=== PATIENT | male | born 1970 | race Caucasian/White ===

== ENCOUNTER 2020-08-24 09:43 | Inpatient (IN) | payer OTHER ==
[~2020-08-24] VITALS: Ht 177.8 cm; Wt 162.0 kg
[2020-08-24 11:18] LABS: Hematocrit 54.9 % (41.0-53.0); Hemoglobin 18.2 g/dL (13.5-17.5); Mean Corpuscular Hemoglobin 30.6 pg (28.0-32.0); Mean Corpuscular Hgb Conc. 33.1 g/dL (32.0-36.0); Mean Corpuscular Volume 92.6 fL (80.0-100.0); Platelet Count (auto) 110 10^3/uL (140-450); Red Blood Cells 5.94 10^6/uL (4.5-5.90); Red Cell Distribution Width 19.3 % (11.8-14.3); White Blood Cell 9.6 10^3/uL (4.4-10.8)
[2020-08-24 11:19] LABS: Band Neutrophils % (manual) 0; Basophils % (manual) 0 (0.0-2.0); Blast Cells 0; Eosinophils % (manual) 0 (0-7); Metamyelocytes % 0; Myelocytes % 0; Promyelocytes % 0; Reactive Lymphocytes 0
[2020-08-24 11:32] LABS: Albumin 4.3 g/dL (3.4-5.0); Calcium 9.4 mg/dL (8.5-10.1); Magnesium 2.4 mg/dL (1.6-2.6); Potassium 4.4 mmol/L (3.5-5.1)
[2020-08-24 11:38] LABS: BUN/Creatinine Ratio 12.2; Bilirubin, Total 4.8 mg/dL (0.2-1.0); Total Protein 7.2 g/dL (6.4-8.2)
[2020-08-24 11:45] LABS: Lymphocytes % (manual) 14 (10.0-50.0); Monocytes % (manual) 7 (0-12)
[2020-08-24] MEDS ORDERED: dilTIAZem 25 MG/5 ML VIAL IV ONE (12:15)
[2020-08-24] MEDS ORDERED: SPIRONOLACTONE 25 MG TAB PO ONE (12:15)
[2020-08-24] MEDS ORDERED: FUROSEMIDE 40 MG/4 ML VIAL IV ONE (12:15)
[2020-08-24 13:52] LABS: Urine Amorphous Crystal FEW /hpf (None Seen); Urine Bacteria NONE SEEN /hpf (None Seen); Urine Blood Negative /uL (Negative); Urine Hyaline Cast MOD /lpf (0 - 2); Urine Mucus FEW (None Seen); Urine Specific Gravity 1.006 (1.001-1.035); Urine WBC <1 /hpf (0 - 3)
[2020-08-24 13:52] LABS: INR 1.29 (0.9-1.15); Partial Thromboplastin Time 29.7 sec (23.0-31.2)
[2020-08-24] MEDS ORDERED: AMIODARONE HCL 150 MG in D5W 5% 100 ML IV ONE (14:45)
[2020-08-24] MEDS ORDERED: AMIODARONE 450mg/250ml AE 250 ML IV SCH (15:00)
[2020-08-24] MEDS ORDERED: MORPHINE SULF INJ 2 MG/ML SYRINGE 1ML IV PRN ×2 (15:45→16:15)
[2020-08-24] MEDS ORDERED: NITROGLYCERIN 0.4 MG SL TAB SL PRN (15:45)
[2020-08-24] MEDS ORDERED: traMADol HCL 50 MG TAB PO PRN (16:15)
[2020-08-24] MEDS ORDERED: LACTULOSE 20Gm/30ML SOLN PO PRN (16:15)
[2020-08-24] MEDS ORDERED: PROMETHAZINE HCL 25 MG/ML 1ML IV PRN (16:15)
[2020-08-24 16:49] LABS: Alcohol, Urine < 3.0 mg/dL (0-10); Amphetamine Screen, Urine NEGATIVE (NEGATIVE); Barbiturate Scree,Urine NEGATIVE (NEGATIVE); Benzodiazephine Screen, Urine NEGATIVE (NEGATIVE); Cannabinoid Screen, Urine NEGATIVE (NEGATIVE); Cocaine Screen, Urine NEGATIVE (NEGATIVE); Opiate Scree,Urine NEGATIVE (NEGATIVE); Phencyclidine Screen, Urine NEGATIVE (NEGATIVE)
[2020-08-24] MEDS: ENOXAPARIN SOD 120 MG/0.8 ML SYRINGE SC SCH (17:25)
[2020-08-24] MEDS: AMIODARONE 450mg/250ml AE 250 ML IV SCH (21:50)
[2020-08-24] MEDS: SODIUM CHLOR 0.9% PF (SALINE LOCK) 10ML VIAL/SYR IV SCH (21:50)
[2020-08-24] MEDS: CARVEDILOL 3.125 MG TAB PO SCH (21:51)
[2020-08-24] MEDS: FAMOTIDINE 20 MG TAB PO SCH (21:52)
[2020-08-24] MEDS ORDERED: TEMAZEPAM 15 MG CAP PO PRN (22:00)
[2020-08-25] MEDS: AMIODARONE 450mg/250ml AE 250 ML IV SCH (01:15)
[2020-08-25] MEDS: ENOXAPARIN SOD 120 MG/0.8 ML SYRINGE SC SCH ×2 (04:44→16:54)
[2020-08-25] MEDS ORDERED: IOHEXOL 350 MG/ML 100ML IJ ONE (04:46)
[2020-08-25 04:53] LABS: Basophils # (auto) 0.1 10 ^3/uL (0-0.2); Basophils % (auto) 0.8 % (0.0-2.0); Eosinophils # (auto) 0.1 10 ^3/uL (0-0.8); Eosinophils % (auto) 0.8 % (0.0-7.0); Hemoglobin 17.6 g/dL (13.5-17.5); Lymphocytes % (auto) 12.4 % (10.0-50.0); Mean Corpuscular Hemoglobin 30.4 pg (28.0-32.0); Mean Corpuscular Hgb Conc. 33.1 g/dL (32.0-36.0); Mean Corpuscular Volume 91.7 fL (80.0-100.0); Monocytes # (auto) 0.7 10 ^3/uL (0-1.3); Monocytes % (auto) 8.9 % (0.0-12.0); Neutrophils # (auto) 6.3 10 ^3/uL (1.6-8.6); Neutrophils % (auto) 77.1 % (37.0-80.0); Nucleated Red Blood Cells % 0.2 %; Red Blood Cells 5.78 10^6/uL (4.5-5.90); Red Cell Distribution Width 18.9 % (11.8-14.3); White Blood Cell 8.1 10^3/uL (4.4-10.8)
[2020-08-25 04:57] LABS: Albumin 3.8 g/dL (3.4-5.0); Calcium 9.3 mg/dL (8.5-10.1); Potassium 4.3 mmol/L (3.5-5.1)
[2020-08-25 05:00] LABS: INR 1.5 (0.9-1.15); Partial Thromboplastin Time 36.2 sec (23.0-31.2)
[2020-08-25 05:03] LABS: BUN/Creatinine Ratio 13.8; Bilirubin, Total 4.3 mg/dL (0.2-1.0); Total Protein 6.5 g/dL (6.4-8.2)
[2020-08-25] MEDS: SODIUM CHLOR 0.9% PF (SALINE LOCK) 10ML VIAL/SYR IV SCH ×3 (05:06→22:47)
[2020-08-25 06:12] LABS: Platelet Count (auto) 155 10^3/uL (140-450)
[2020-08-25] MEDS: FUROSEMIDE 40 MG/4 ML VIAL IV SCH (10:44)
[2020-08-25] MEDS: CARVEDILOL 3.125 MG TAB PO SCH ×4 (10:45→23:51)
[2020-08-25] MEDS: POTASSIUM CHL 20 Meq TABLET PO SCH (10:45)
[2020-08-25] MEDS: FAMOTIDINE 20 MG TAB PO SCH ×2 (10:46→22:48)
[2020-08-25] MEDS: ENALAPRIL MALEATE 2.5 MG TAB PO SCH (10:46)
[2020-08-25] MEDS: HYDROCORTONE 1% TOPICAL CREAM 30 GM TUBE TOP SCH ×2 (11:18→22:51)
[2020-08-26] MEDS: AMIODARONE 450mg/250ml AE 250 ML IV SCH ×2 (03:46→18:18)
[2020-08-26] MEDS: ENOXAPARIN SOD 120 MG/0.8 ML SYRINGE SC SCH ×2 (04:34→16:43)
[2020-08-26] MEDS: SODIUM CHLOR 0.9% PF (SALINE LOCK) 10ML VIAL/SYR IV SCH ×3 (06:04→21:48)
[2020-08-26] MEDS: HYDROCORTONE 1% TOPICAL CREAM 30 GM TUBE TOP SCH ×2 (10:00→22:00)
[2020-08-26] MEDS: FUROSEMIDE 40 MG/4 ML VIAL IV SCH (11:17)
[2020-08-26] MEDS: FAMOTIDINE 20 MG TAB PO SCH ×2 (11:18→21:50)
[2020-08-26] MEDS: ENALAPRIL MALEATE 2.5 MG TAB PO SCH (11:18)
[2020-08-26] MEDS: POTASSIUM CHL 20 Meq TABLET PO SCH (11:18)
[2020-08-26] MEDS: NITROGLYCERIN 2% OINT 1GM PKG TD SCH ×2 (23:00→23:57)
[2020-08-27] VITALS (7 sets, daily range): BP systolic 114–139; BP diastolic 69–92
--- NOTE | 2020-08-27 00:22 | NUR ---
Telemetry admit from [facility] admitted to Telemetry unit after SBAR received. Patient oriented to PANDA LARA, RN primary RN, unit, room, bed, and unit policies regarding patient care and visiting hours. Patient now on continuous telemetry monitoring tele box # 39 and telemetry reading on arrival to unit is AFIB 84. Patient placed on bedside oxygen, weighed by bedscale and encouraged to call if they need something. Safety precautions in place bed in lowest position, side rails up x2 and call light with in reach. All questions and concerns addressed, patient verbalized understanding.
[2020-08-27] MEDS: NITROGLYCERIN 2% OINT 1GM PKG TD SCH ×2 (01:09→02:01)
[2020-08-27] MEDS: ENOXAPARIN SOD 120 MG/0.8 ML SYRINGE SC SCH ×2 (04:03→19:27)
[2020-08-27] MEDS: SODIUM CHLOR 0.9% PF (SALINE LOCK) 10ML VIAL/SYR IV SCH ×3 (05:14→22:06)
[2020-08-27] MEDS: FAMOTIDINE 20 MG TAB PO SCH ×2 (09:15→22:00)
[2020-08-27] MEDS: POTASSIUM CHL 20 Meq TABLET PO SCH (09:16)
[2020-08-27] MEDS: CARVEDILOL 3.125 MG TAB PO SCH ×2 (09:17→22:07)
[2020-08-27] MEDS: AMIODARONE HCL 200 MG TAB PO SCH (09:18)
[2020-08-27] MEDS: ENALAPRIL MALEATE 2.5 MG TAB PO SCH (09:19)
[2020-08-27] MEDS: FUROSEMIDE 40 MG/4 ML VIAL IV SCH (09:19)
[2020-08-27] MEDS: HYDROCORTONE 1% TOPICAL CREAM 30 GM TUBE TOP SCH ×2 (10:00→22:00)
--- NOTE | 2020-08-27 12:25 | NUR ---
Nutrition Assessment Est energy needs 7670-5821 kcal (11-14kcal/kg BW 164.7kg) Est protein needs 75-98g (1-1.3g/kg IBW 75kg) Will monitor and reassess prn. Addendum: 08/27/20 at [address] Amended: Links added.
--- NOTE | 2020-08-27 13:38 | NUR ---
assessment Patient is a 49 year old male who is alert and oriented. Patients cognitive abilities are intact. Prior to admission patient lived home with family and functioned independently. Patient informed me he is able to care for his own ADLs. Per patient he will return home to his prior living arrangements post discharge and family will transport him home. Patient informed me he came to ER for edema and was admitted and found some heart issues. Patient informed me he has a cane, fww, and wheelchair for use if ever needed. Patients PCP is Dr Kenny. I informed patient I will continue to monitor and follow up as appropriate for any post discharge needs. At this time no discharge needs identified. I informed patient he has a right to speak to a social worker aide regarding all care. I informed patient he has a right to participate in any and all discharge planning. Patient does not have a POA and advanced directive. I have offered patient information on POA and advanced directives. I informed the patient the advantages and benefits of having an Advanced Directive. Patient verbalized understanding and agreed to discharge plan. Addendum: 08/27/20 at 1340 by Marlene RIDER Amended: Links added.
--- NOTE | 2020-08-27 18:44 | NUR ---
eating et drinking well. states right before he has a bm he become he feels clammy, vs wnl, no change with tele, no distress noted, no cp or sob. resting at this time. offers no other needs.
--- NOTE | 2020-08-27 19:50 | NUR ---
Opening Shift Note Assumed care of patient, awake and alert. No S/S of distress/SOB or pain. Instructed on POC and to call for assist PRN, will continue to monitor for changes Q1hr and PRN. bed in low position and call light within reach
[2020-08-28] MEDS: ENOXAPARIN SOD 120 MG/0.8 ML SYRINGE SC SCH ×2 (04:09→17:12)
[2020-08-28 04:50] VITALS: BP 120/86
[2020-08-28] MEDS: SODIUM CHLOR 0.9% PF (SALINE LOCK) 10ML VIAL/SYR IV SCH ×3 (05:23→21:57)
[2020-08-28 06:57] LABS: Albumin 3.5 g/dL (3.4-5.0); Calcium 8.8 mg/dL (8.5-10.1); Potassium 4.1 mmol/L (3.5-5.1)
[2020-08-28 07:03] LABS: BUN/Creatinine Ratio 18.4; Bilirubin, Total 3.7 mg/dL (0.2-1.0); Total Protein 6.1 g/dL (6.4-8.2)
--- NOTE | 2020-08-28 07:29 | NUR ---
Report given to dayshift rn patient denies sob distress or pain
--- NOTE | 2020-08-28 08:00 | NUR ---
RECEIVED PATIENT ALERT AND ORIENTED X4, NOT IN DISTRESS, CLEAR LS IN BILATERAL UPPER AND CLEAR IN LOWER LUNG LOBES, RR=18 SAT=95%, DEEP BREATHING AND COUGHING WAS ENCOURAGED, VERBALIZED UNDERSTANDING, SR R=92 ON TELE MONITOR, DENIED SOB AND CHEST PAIN, ABDOMEN SOFT WITH ACTIVE BS, LAST BM=08/27/20 REPORTED, SKIN INTACT WARM TO TOUCH, BILATERAL LOWER EXTREMITY EDEMA +2 NOTED, RADIAL AND PEDAL PULSES PALPABLE, CAP REFILL <3 SECONDS, DENIED PAIN, RESTING ON BED, HEAD OF BED ELEVATED, BED ON LOW POSITION, RAILS UP X2, CALL LIGHT ON REACH, WILL CONTINUE MONITORING.
[2020-08-28 09:00] VITALS: BP 115/61
[2020-08-28] MEDS: FAMOTIDINE 20 MG TAB PO SCH ×2 (10:00→21:58)
[2020-08-28] MEDS: AMIODARONE HCL 200 MG TAB PO SCH (10:48)
[2020-08-28] MEDS: FUROSEMIDE 40 MG/4 ML VIAL IV SCH (10:48)
[2020-08-28] MEDS: POTASSIUM CHL 20 Meq TABLET PO SCH (10:49)
[2020-08-28] MEDS: CARVEDILOL 3.125 MG TAB PO SCH ×2 (10:49→21:57)
[2020-08-28] MEDS: HYDROCORTONE 1% TOPICAL CREAM 30 GM TUBE TOP SCH ×2 (10:50→21:58)
[2020-08-28] MEDS: ENALAPRIL MALEATE 2.5 MG TAB PO SCH (10:50)
[2020-08-28 12:11] VITALS: BP 120/90
--- NOTE | 2020-08-28 13:00 | NUR ---
OUT OF BED TO BR, TOLERATED BODY CLEAN, BACK TO THE BED AND RESTING, PENDING CARDIAC CONSULT, WILL CONTINUE MONITORING.
[2020-08-28 16:47] VITALS: BP 152/78
--- NOTE | 2020-08-28 19:18 | NUR ---
PENDING CAROTID CATH IN AM ORDERED, BODY DESIGNER FORM ON CHART, NOT IN DISTRESS, DENIED PAIN, RESTING ON BED, HEAD OF BED ELEVATED, BED ON LOW POSITION, RAILS UP X2, CALL LIGHT ON REACH, REPORT WAS GIVEN TO THE NANOSYSTEMS ENGINEER RN.
--- NOTE | 2020-08-28 19:27 | NUR ---
Opening Shift Note Assumed care of patient, awake and alert. No S/S of distress/SOB or pain. Patient verbalized understanding of procedure scheduled and verbalized understanding to remain npo after midnight. Instructed on POC and to call for assist PRN, will continue to monitor for changes Q1hr and PRN. Bed in low position and call light within reach
[2020-08-28 20:00] VITALS: BP 124/75
[2020-08-28 20:40] LABS: Basophils # (auto) 0 10 ^3/uL (0-0.2); Basophils % (auto) 0.5 % (0.0-2.0); Eosinophils # (auto) 0.1 10 ^3/uL (0-0.8); Eosinophils % (auto) 1.5 % (0.0-7.0); Hematocrit 52.5 % (41.0-53.0); Hemoglobin 17.5 g/dL (13.5-17.5); Lymphocytes # (auto) 1.1 10 ^3/uL (0.4-5.4); Lymphocytes % (auto) 14.1 % (10.0-50.0); Mean Corpuscular Hemoglobin 30.6 pg (28.0-32.0); Mean Corpuscular Hgb Conc. 33.3 g/dL (32.0-36.0); Mean Corpuscular Volume 91.9 fL (80.0-100.0); Monocytes % (auto) 12.5 % (0.0-12.0); Neutrophils # (auto) 5.6 10 ^3/uL (1.6-8.6); Neutrophils % (auto) 71.4 % (37.0-80.0); Nucleated Red Blood Cells % 0.2 %; Platelet Count (auto) 109 10^3/uL (140-450); Red Blood Cells 5.72 10^6/uL (4.5-5.90); Red Cell Distribution Width 17.9 % (11.8-14.3); White Blood Cell 7.9 10^3/uL (4.4-10.8)
[2020-08-28 20:54] LABS: INR 1.53 (0.9-1.15); Partial Thromboplastin Time 45.2 sec (23.0-31.2)
[2020-08-28 21:53] VITALS: BP 124/75
--- NOTE | 2020-08-28 22:00 | NUR ---
Consent patient signed procedure consent.patient verbalized understanding of procedure which was explained by MD. patient has no further questions.
[2020-08-29 01:35] LABS: Urine Bacteria FEW /hpf (None Seen); Urine Blood Negative /uL (Negative); Urine Hyaline Cast MOD /lpf (0 - 2); Urine Mucus FEW (None Seen); Urine Specific Gravity 1.015 (1.001-1.035); Urine WBC 1 /hpf (0 - 3)
[2020-08-29] MEDS: ENOXAPARIN SOD 120 MG/0.8 ML SYRINGE SC SCH (03:44)
[2020-08-29 05:37] VITALS: BP 137/95
[2020-08-29] MEDS: SODIUM CHLOR 0.9% PF (SALINE LOCK) 10ML VIAL/SYR IV SCH ×3 (06:06→23:05)
--- NOTE | 2020-08-29 07:19 | NUR ---
report given to dayshift rn patient denies sob distress or pain
[2020-08-29] MEDS ORDERED: LIDOCAINE 2%HCL (LOCAL ANESTH.) INJ 20ML MDV ONE (07:58)
[2020-08-29] MEDS ORDERED: IODIXANOL 320MG/ML 100ML BTL IV ONE (07:58)
[2020-08-29] MEDS ORDERED: fentaNYL CITRATE 100 MCG/2 ML VL ONE (08:10)
[2020-08-29] MEDS ORDERED: SODIUM CHL 0.9% 0 ML ONE (08:10)
[2020-08-29] MEDS ORDERED: MIDAZOLAM HCL 1MG/1ML-2 ML VIAL ONE (08:10)
[2020-08-29] MEDS ORDERED: ANGIOMAX 250 MG VIAL IV ONE (08:10)
[2020-08-29 08:49] VITALS: BP 121/102
[2020-08-29 10:27] VITALS: BP 117/70
[2020-08-29] MEDS: AMIODARONE HCL 200 MG TAB PO SCH (11:07)
[2020-08-29] MEDS: APIXABAN 5 MG TAB PO SCH ×2 (11:07→23:06)
[2020-08-29] MEDS: ENALAPRIL MALEATE 2.5 MG TAB PO SCH (11:08)
[2020-08-29] MEDS: POTASSIUM CHL 20 Meq TABLET PO SCH (11:08)
[2020-08-29] MEDS: FUROSEMIDE 40 MG/4 ML VIAL IV SCH (11:14)
[2020-08-29] MEDS: CARVEDILOL 3.125 MG TAB PO SCH ×2 (11:14→23:05)
[2020-08-29] MEDS: HYDROCORTONE 1% TOPICAL CREAM 30 GM TUBE TOP SCH ×2 (11:15→23:06)
[2020-08-29] MEDS: FAMOTIDINE 20 MG TAB PO SCH ×2 (11:15→22:00)
[2020-08-29 12:40] VITALS: BP 112/79
[2020-08-29 16:25] VITALS: BP 111/72
--- NOTE | 2020-08-29 18:28 | NUR ---
Patient had catheter builder procedure today. Vital signs stable, incision site intact no drainage or bruising . no pain patient states that he feels well. Will continue to monitor
[2020-08-29 22:00] VITALS: BP 138/95
[2020-08-30 04:56] VITALS: BP 130/72
[2020-08-30] MEDS: SODIUM CHLOR 0.9% PF (SALINE LOCK) 10ML VIAL/SYR IV SCH ×3 (06:25→22:00)
--- NOTE | 2020-08-30 07:15 | NUR ---
closing note pt resting in semi fowlers with HOB at 30 degrees. no c/o pain or discomfort. endorsed care to day shift MINOR Cruz.
[2020-08-30 09:25] VITALS: BP 121/82
[2020-08-30] MEDS: HYDROCORTONE 1% TOPICAL CREAM 30 GM TUBE TOP SCH ×2 (10:34→22:00)
[2020-08-30] MEDS: AMIODARONE HCL 200 MG TAB PO SCH (10:35)
[2020-08-30] MEDS: FUROSEMIDE 40 MG/4 ML VIAL IV SCH (10:36)
[2020-08-30] MEDS: APIXABAN 5 MG TAB PO SCH ×2 (10:36→22:35)
[2020-08-30] MEDS: POTASSIUM CHL 20 Meq TABLET PO SCH (10:36)
[2020-08-30] MEDS: CARVEDILOL 3.125 MG TAB PO SCH ×2 (10:38→22:35)
[2020-08-30] MEDS: ENALAPRIL MALEATE 2.5 MG TAB PO SCH (10:38)
[2020-08-30] MEDS: FAMOTIDINE 20 MG TAB PO SCH ×2 (10:40→22:00)
[2020-08-30 13:12] VITALS: BP 116/99
--- NOTE | 2020-08-30 14:28 | NUR ---
Spoke to to ask him for life vest for patient since the patient EF <20%. ordered the life vest for patient and explained to patient the importance of it. I also spoke to Jordan from [employer] that said that membership sales representative will come today to measure the patient. The vest will be ready tomorrow morning. Spoke to to let him know that the vest will probably be there tomorrow morning.
--- NOTE | 2020-08-30 15:36 | NUR ---
Nutrition Followup Note Wt 162kg Pt was alert and oriented at time of rounds. Pt reports appetite is getting better. Pt denies any GI issues. Pt is with a 2g Na diet with 75-100% po intake per RN note Est energy needs 1658-3632 kcal (11-14kcal/kg BW 164.7kg) Est protein needs 75-98g (1-1.3g/kg IBW 75kg) Will monitor and reassess prn. Labs: T bili 3.7H, Alb 3.5WNL, Na 133L, BUN 26H, Creat 1.41H BM: Pt with 1 BM 08/29 per Rn note Skin : BS 18 mod risk, full details in career technical counselor note PES: Obesity r/t caloric intake in excess of needs aeb pt with a BMI of 52.1kg/m2 Comments 1) Continue to monitor po intake, labs, skin 2) refer pt to [facility] on DC 3) Continue current plan of care Expected Outcomes/Goals: 1) pt po intake >75% 2) pt to no gain any further wt while in the hospital 3) f/u 3-5 days
[2020-08-30 17:00] VITALS: BP 127/74
[2020-08-30 21:15] VITALS: BP 133/73
--- NOTE | 2020-08-31 05:00 | NUR ---
Life Vest Pt received life vest, life vest is on. Box is on the side of room, and instruction manual is at bedside. Pt instructed to always wear life vest, and verbalized understanding purpose of life vest.
[2020-08-31 05:13] VITALS: BP 114/73
[2020-08-31] MEDS: SODIUM CHLOR 0.9% PF (SALINE LOCK) 10ML VIAL/SYR IV SCH ×2 (05:34→14:00)
[2020-08-31 09:05] VITALS: BP 138/90
[2020-08-31] MEDS: FUROSEMIDE 40 MG/4 ML VIAL IV SCH (09:37)
[2020-08-31] MEDS: APIXABAN 5 MG TAB PO SCH (09:38)
[2020-08-31] MEDS: FAMOTIDINE 20 MG TAB PO SCH (09:38)
[2020-08-31] MEDS: POTASSIUM CHL 20 Meq TABLET PO SCH (09:38)
[2020-08-31] MEDS: AMIODARONE HCL 200 MG TAB PO SCH (09:38)
[2020-08-31] MEDS: ENALAPRIL MALEATE 2.5 MG TAB PO SCH (09:40)
[2020-08-31] MEDS: CARVEDILOL 3.125 MG TAB PO SCH (09:40)
[2020-08-31] MEDS: HYDROCORTONE 1% TOPICAL CREAM 30 GM TUBE TOP SCH (10:00)
[2020-08-31 13:00] VITALS: BP 142/94
--- NOTE | 2020-08-31 13:30 | NUR ---
Patient prescribed Corlanor, per pharmacy medication is $508 and there is no generic form.Per patient he said hes is going to call and speak with their insurance to see if they can cover more of the cost of medication. Spoke with doctor Hinson regarding medication, per Doctor Hinson call Doctor Yepez and inform him about medication and have patient follow up with Doctor Yepez with in one week. Called and spoke with doctor Yepez regarding the braden of the medication and per Doctor Lucho if patient cant afford the medication he doesn't have to take it. Per Patient hes going to contact his insurance and follow up with Doctor Yepez.
--- NOTE | 2020-08-31 14:09 | NUR ---
Discharge instructions given as ordered. Encourage to follow up with PMD as instructed. All questions and concerns addressed. Patient verbalized understanding. Medication reconciliation form completed and copy given to patient. Patients prescribed medications fill by [facility] and given to patient. IV removed with catheter intact, pressure dressing applied. Telemetry unit returned to ICU. Patient taken to vehicle via wheelchair with all personal belongings, accompanied by staff. Family member waiting in front lobby for transportation home. No distress noted at time of departure.
== END 2020-08-31 14:09 | disposition home or self-care (01) | DRG 287 ==
LOC: ER 09:43 → OVERFLOW 09:44 → TELE-CENTR 08-26 23:48
PROVIDERS: ADMIT Internal Medicine; ATTEND Family Medicine
PROC: B2111ZZ Fluoroscopy of Multiple Coronary Arteries using Low Osmolar Contrast (ICD-10-PCS; principal; 2020-08-29)
PROC: B2151ZZ Fluoroscopy of Left Heart using Low Osmolar Contrast (ICD-10-PCS; 2020-08-29)
PROC: 4A023N7 Measurement of Cardiac Sampling and Pressure, Left Heart, Percutaneous Approach (ICD-10-PCS; 2020-08-29)
DX: I11.0 Hypertensive heart disease with heart failure (principal); I48.20 Chronic atrial fibrillation, unspecified; D68.59 Other primary thrombophilia; J98.11 Atelectasis; Z68.43 Body mass index [BMI] 50.0-59.9, adult; I50.23 Acute on chronic systolic (congestive) heart failure; I42.0 Dilated cardiomyopathy; R60.1 Generalized edema; E03.9 Hypothyroidism, unspecified; E80.6 Other disorders of bilirubin metabolism; D69.6 Thrombocytopenia, unspecified; R79.89 Other specified abnormal findings of blood chemistry; E66.01 Morbid (severe) obesity due to excess calories; D75.1 Secondary polycythemia; G47.30 Sleep apnea, unspecified; K76.0 Fatty (change of) liver, not elsewhere classified; Z20.828 Contact with and (suspected) exposure to other viral communicable diseases; Z87.891 Personal history of nicotine dependence; Z91.14 Patient's other noncompliance with medication regimen; Z91.19 Patient's noncompliance with other medical treatment and regimen; N28.9 Disorder of kidney and ureter, unspecified
CPT/HCPCS: 36415; 71046; 71275; 76705; 80053; 80061; 80307; 81001; 82550; 83735; 83880; 84443; 84484; 85007; 85025; 85027; 85379; 85610; 85652; 85730; 86141; 86850; 86900; 86901; 87426; 93005; 93306; 93458; 96374; 96375; 99152; G0378; J2250; J7060; Q9967

== ENCOUNTER → 2020-10-22 | Outpatient (CLI) | payer OTHER | END | disposition home or self-care (01) | LOC: Rad HDHVI 08:44 | PROVIDERS: ATTEND Internal Medicine Cardiovascular Disease | DX: I51.7 Cardiomegaly (principal); R07.89 Other chest pain; R06.02 Shortness of breath | CPT/HCPCS: 93306 ==

== ENCOUNTER → 2020-11-11 | Outpatient (CLI) | payer OTHER ==
[~2020-11-11] MED LIST: AMIO200T33 PO; APIX5TAB PO; CAR3125T PO; DIGO0.25 PO; ENAL5TAB85 PO; FURO1TAB31 PO; POTA10TA51 PO; SACU1TAB PO; SPIR25TA PO
[2020-11-11 10:15] VITALS: BP 106/66
[2020-11-11 10:39] VITALS: BP 123/69
[2020-11-11 11:56] LABS: INR 0.99 (0.9-1.15); Partial Thromboplastin Time 30.7 sec (23.0-31.2)
[2020-11-11 12:15] LABS: Calcium 8.8 mg/dL (8.5-10.1); Potassium 4.5 mmol/L (3.5-5.1)
[2020-11-11 12:17] LABS: BUN/Creatinine Ratio 23.6
[2020-11-11 15:46] LABS: Basophils # (auto) 0.1 10 ^3/uL (0-0.2); Basophils % (auto) 0.6 % (0.0-2.0); Eosinophils # (auto) 0.3 10 ^3/uL (0-0.8); Eosinophils % (auto) 2.7 % (0.0-7.0); Hematocrit 47.2 % (41.0-53.0); Hemoglobin 16.1 g/dL (13.5-17.5); Lymphocytes # (auto) 1.5 10 ^3/uL (0.4-5.4); Lymphocytes % (auto) 15.6 % (10.0-50.0); Mean Corpuscular Hemoglobin 30.7 pg (28.0-32.0); Mean Corpuscular Volume 90.3 fL (80.0-100.0); Monocytes # (auto) 0.7 10 ^3/uL (0-1.3); Neutrophils # (auto) 6.9 10 ^3/uL (1.6-8.6); Neutrophils % (auto) 73.1 % (37.0-80.0); Nucleated Red Blood Cells % 0.6 %; Red Blood Cells 5.23 10^6/uL (4.5-5.90); Red Cell Distribution Width 19.1 % (11.8-14.3); White Blood Cell 9.4 10^3/uL (4.4-10.8)
== END | disposition home or self-care (01) ==
LOC: Rad HDHVI 09:49
PROVIDERS: ATTEND Internal Medicine Cardiovascular Disease
DX: Z01.812 Encounter for preprocedural laboratory examination (principal); I51.7 Cardiomegaly; I50.9 Heart failure, unspecified; Z95.5 Presence of coronary angioplasty implant and graft
CPT/HCPCS: 36415; 71046; 80048; 85025; 85610; 85730; 93005; G0463

== ENCOUNTER 2020-11-28 06:41 | Day surgery (SDC) | payer OTHER ==
[~2020-11-28] VITALS: Ht 177.8 cm; Wt 124.7 kg
[2020-11-28] MEDS ORDERED: LIDOCAINE 2%HCL (LOCAL ANESTH.) INJ 20ML MDV ONE (07:51)
[2020-11-28] MEDS ORDERED: VANCOMYCIN 1GM/250ML 250 ML IV ONE ×2 (09:00→09:21)
[2020-11-28] MEDS ORDERED: VANCOMYCIN HCL 1000 MG VL ONE (09:33)
[2020-11-28] MEDS ORDERED: fentaNYL CITRATE 100 MCG/2 ML VL ONE (09:33)
[2020-11-28] MEDS ORDERED: MIDAZOLAM HCL 1MG/1ML-2 ML VIAL ONE (09:33)
[2020-11-28] MEDS ORDERED: diphenhdrAMINE HCL 50 MG/1 ML VL ONE (10:02)
[2020-11-28] MEDS ORDERED: HYDROcodone-ACET 5/325MG TAB PO PRN (10:45)
[2020-11-28] MEDS ORDERED: ACETAMINOPHEN 325 MG TAB PO PRN (10:45)
== END 2020-11-28 12:43 | disposition home or self-care (01) ==
LOC: CATH 06:41
PROVIDERS: ATTEND Internal Medicine Cardiovascular Disease
DX: Z45.02 Encounter for adjustment and management of automatic implantable cardiac defibrillator (principal); I11.0 Hypertensive heart disease with heart failure; I42.9 Cardiomyopathy, unspecified; Z20.822 Contact with and (suspected) exposure to COVID-19; Z98.890 Other specified postprocedural states; Z79.899 Other long term (current) drug therapy; Z68.39 Body mass index [BMI] 39.0-39.9, adult
CPT/HCPCS: 33249; 71045; 93005; C1769; C1882; C1892; C1895; C1898; J1200; J2250; J3010; J3370; J7030; U0003; 99152; 99153

== ENCOUNTER → 2020-11-29 | Outpatient (CLI) | payer OTHER | END | disposition home or self-care (01) | LOC: Rad HDHVI 13:33 | PROVIDERS: ATTEND Internal Medicine Cardiovascular Disease | DX: Z95.0 Presence of cardiac pacemaker (principal) | CPT/HCPCS: 71046 ==

== ENCOUNTER → 2021-03-03 | Outpatient (CLI) | payer OTHER | END | disposition home or self-care (01) | LOC: Rad HDHVI 08:30 | PROVIDERS: ATTEND Internal Medicine Cardiovascular Disease | DX: I50.43 Acute on chronic combined systolic (congestive) and diastolic (congestive) heart failure (principal); R06.02 Shortness of breath | CPT/HCPCS: 93306 ==

== ENCOUNTER 2022-04-19 10:04 | Inpatient (IN) | payer BC, OTHER ==
[~2022-04-19] VITALS: Ht 177.8 cm; Wt 141.0 kg
[2022-04-19 10:44] LABS: Basophils # (auto) 0.1 10 ^3/uL (0-0.2); Basophils % (auto) 0.6 % (0.0-2.0); Eosinophils # (auto) 0.1 10 ^3/uL (0-0.8); Eosinophils % (auto) 0.3 % (0.0-7.0); Hematocrit 46.7 % (41.0-53.0); Hemoglobin 15.3 g/dL (13.5-17.5); Lymphocytes # (auto) 1.3 10 ^3/uL (0.4-5.4); Lymphocytes % (auto) 7.9 % (10.0-50.0); Mean Corpuscular Hemoglobin 31.4 pg (28.0-32.0); Mean Corpuscular Hgb Conc. 32.7 g/dL (32.0-36.0); Mean Corpuscular Volume 96.2 fL (80.0-100.0); Monocytes # (auto) 1.1 10 ^3/uL (0-1.3); Monocytes % (auto) 6.4 % (0.0-12.0); Neutrophils # (auto) 14.3 10 ^3/uL (1.6-8.6); Neutrophils % (auto) 84.8 % (37.0-80.0); Nucleated Red Blood Cells % 0.1 %; Red Blood Cells 4.86 10^6/uL (4.5-5.90); Red Cell Distribution Width 15.3 % (11.8-14.3); White Blood Cell 16.9 10^3/uL (4.4-10.8)
[2022-04-19 11:02] LABS: Albumin 3.7 g/dL (3.4-5.0); Calcium 8.7 mg/dL (8.5-10.1)
[2022-04-19 11:05] LABS: BUN/Creatinine Ratio 15.2; Total Protein 7.4 g/dL (6.4-8.2)
[2022-04-19 11:28] LABS: Urine Bacteria NONE SEEN /hpf (None Seen); Urine Blood Negative /uL (Negative); Urine Specific Gravity 1.009 (1.001-1.035); Urine WBC <1 /hpf (0 - 3)
[2022-04-19] MEDS ORDERED: SODIUM CHLORIDE 0.9% 1,000 ML IV ONE (13:00)
[2022-04-19 13:40] LABS: INR 1.13 (0.9-1.15)
[2022-04-19] MEDS ORDERED: LACTATED RINGER'S 1,000 ML IV ONE (17:45)
[2022-04-19] MEDS ORDERED: cefTRIAXone 1GM/50ML D5W 50 ML IV ONE (17:45)
[2022-04-19] MEDS ORDERED: AZITHROMYCIN 500MG/ 250ML 250 ML IV ONE (17:45)
[2022-04-19] MEDS ORDERED: ALBUTEROL SULF 2.5 MG/0.5ML(0.5%) NEB SOLN NEB PRN (17:45)
[2022-04-19] MEDS: IPRATROPIUM BROM 0.5 MG/2.5ML INH SOL NEB SCH (17:55)
[2022-04-19] MEDS: ALBUTEROL SULF 2.5 MG/0.5ML(0.5%) NEB SOLN NEB SCH (17:55)
[2022-04-19 18:14] LABS: Creatinine, Urine 55 mg/dL (30.0-125.0); Sodium Urine 76 mmol/L (40-220)
[2022-04-19] MEDS ORDERED: HYDROcodone-ACET 5/325MG TAB PO PRN (18:15)
[2022-04-19] MEDS ORDERED: DOCUSATE SOD 100 MG CAP PO PRN (18:15)
[2022-04-19] MEDS ORDERED: ACETAMINOPHEN 325 MG TAB PO PRN (18:15)
[2022-04-19] MEDS ORDERED: ONDANSETRON HCL 4 MG/2 ML VIAL IV PRN (18:15)
[2022-04-19] MEDS: MAGNESIUM SULFATE 1GM/100ML 100 ML IV SCH ×2 (18:21→19:57)
[2022-04-19 18:42] VITALS: BP 98/52
[2022-04-19] MEDS: SODIUM CHLOR 0.9% PF (SALINE LOCK) 10ML VIAL/SYR IV SCH (23:24)
[2022-04-19] MEDS: APIXABAN 5 MG TAB PO SCH (23:27)
[2022-04-19] MEDS: CARVEDILOL 3.125 MG TAB PO SCH (23:27)
[2022-04-20] MEDS: ALBUTEROL SULF 2.5 MG/0.5ML(0.5%) NEB SOLN NEB SCH ×4 (00:36→18:51)
[2022-04-20] MEDS: IPRATROPIUM BROM 0.5 MG/2.5ML INH SOL NEB SCH ×4 (00:36→18:51)
[2022-04-20 05:00] VITALS: BP 141/65
[2022-04-20 05:37] LABS: BUN/Creatinine Ratio 13.6; Calcium 8.5 mg/dL (8.5-10.1); Potassium 3.7 mmol/L (3.5-5.1)
[2022-04-20] MEDS: SODIUM CHLOR 0.9% PF (SALINE LOCK) 10ML VIAL/SYR IV SCH ×3 (06:14→21:36)
[2022-04-20] MEDS: DIGOXIN 0.25 MG TAB PO SCH (06:17)
[2022-04-20] MEDS: SACUBITRIL-VALSARTAN 24mg/26mg TAB PO SCH (06:17)
[2022-04-20] MEDS: FUROSEMIDE 40 MG TAB PO SCH (06:19)
[2022-04-20] MEDS: AMIODARONE HCL 200 MG TAB PO SCH (06:20)
[2022-04-20] MEDS ORDERED: SPIRONOLACTONE 25 MG TAB PO SCH (07:00)
[2022-04-20] MEDS: APIXABAN 5 MG TAB PO SCH ×2 (09:13→21:35)
[2022-04-20] MEDS: CARVEDILOL 3.125 MG TAB PO SCH ×2 (09:13→21:36)
[2022-04-20 09:14] VITALS: BP 124/70
[2022-04-20 12:24] LABS: Alcohol, Urine < 3.0 mg/dL (0-10); Amphetamine Screen, Urine NEGATIVE (NEGATIVE); Barbiturate Scree,Urine NEGATIVE (NEGATIVE); Benzodiazephine Screen, Urine NEGATIVE (NEGATIVE); Cannabinoid Screen, Urine NEGATIVE (NEGATIVE); Cocaine Screen, Urine NEGATIVE (NEGATIVE); Opiate Scree,Urine NEGATIVE (NEGATIVE); Phencyclidine Screen, Urine NEGATIVE (NEGATIVE)
[2022-04-20] MEDS ORDERED: IPRATROPIUM BROM 0.5 MG/2.5ML INH SOL NEB PRN (12:45)
[2022-04-20 13:00] VITALS: BP 133/84
[2022-04-20] MEDS ORDERED: OSELTAMIVIR 75 MG CAP PO ONE (14:00)
[2022-04-20 17:14] VITALS: BP 118/73
[2022-04-20] MEDS: guaiFENesin-DM 100/10mg/5ml SYR PO PRN ×2 (17:43→21:36)
[2022-04-20] MEDS: OSELTAMIVIR 75 MG CAP PO SCH (21:35)
[2022-04-20 22:00] VITALS: BP 138/70
[2022-04-21] MEDS: IPRATROPIUM BROM 0.5 MG/2.5ML INH SOL NEB SCH ×4 (01:24→18:10)
[2022-04-21] MEDS: ALBUTEROL SULF 2.5 MG/0.5ML(0.5%) NEB SOLN NEB SCH ×4 (01:24→18:10)
[2022-04-21 05:00] VITALS: BP 132/73
[2022-04-21 06:15] LABS: Potassium 3.5 mmol/L (3.5-5.1)
[2022-04-21 06:21] LABS: Basophils # (auto) 0 10 ^3/uL (0-0.2); Basophils % (auto) 0.3 % (0.0-2.0); Eosinophils # (auto) 0.3 10 ^3/uL (0-0.8); Eosinophils % (auto) 2.9 % (0.0-7.0); Hematocrit 44.6 % (41.0-53.0); Hemoglobin 14.6 g/dL (13.5-17.5); Lymphocytes % (auto) 17.6 % (10.0-50.0); Mean Corpuscular Hemoglobin 31.6 pg (28.0-32.0); Mean Corpuscular Hgb Conc. 32.6 g/dL (32.0-36.0); Mean Corpuscular Volume 96.9 fL (80.0-100.0); Monocytes # (auto) 1.1 10 ^3/uL (0-1.3); Monocytes % (auto) 9.5 % (0.0-12.0); Neutrophils # (auto) 7.9 10 ^3/uL (1.6-8.6); Neutrophils % (auto) 69.7 % (37.0-80.0); Nucleated Red Blood Cells % 0.1 %; Red Cell Distribution Width 15.5 % (11.8-14.3); White Blood Cell 11.3 10^3/uL (4.4-10.8)
[2022-04-21] MEDS: AMIODARONE HCL 200 MG TAB PO SCH (06:24)
[2022-04-21] MEDS: SACUBITRIL-VALSARTAN 24mg/26mg TAB PO SCH (06:24)
[2022-04-21] MEDS: DIGOXIN 0.25 MG TAB PO SCH (06:25)
[2022-04-21] MEDS: FUROSEMIDE 40 MG TAB PO SCH (06:26)
[2022-04-21 06:27] LABS: Magnesium 2.6 mg/dL (1.6-2.6)
[2022-04-21] MEDS: SODIUM CHLOR 0.9% PF (SALINE LOCK) 10ML VIAL/SYR IV SCH ×2 (06:28→13:43)
[2022-04-21] MEDS: guaiFENesin-DM 100/10mg/5ml SYR PO PRN (06:35)
[2022-04-21 08:00] VITALS: BP 131/73
[2022-04-21] MEDS: APIXABAN 5 MG TAB PO SCH (10:15)
[2022-04-21] MEDS: OSELTAMIVIR 75 MG CAP PO SCH (10:15)
[2022-04-21] MEDS: CARVEDILOL 3.125 MG TAB PO SCH (10:17)
[2022-04-21] MEDS ORDERED: OSEL75CA5 PO (11:36)
[2022-04-21] MEDS ORDERED: DEXT1SYP9 PO (11:40)
[2022-04-21] MEDS ORDERED: ALBUAER3 IN (11:40)
[2022-04-21 12:00] VITALS: BP 150/63
[2022-04-21 16:00] VITALS: BP 116/62
[2022-04-21 17:10] VITALS: BP 131/73
== END 2022-04-21 19:07 | disposition home or self-care (01) | DRG 202 ==
LOC: ER 10:04 → TELE 18:13 → TELE-EAST 22:55
PROVIDERS: ADMIT Internal Medicine; ATTEND Internal Medicine
DX: J45.901 Unspecified asthma with (acute) exacerbation (principal); N17.0 Acute kidney failure with tubular necrosis; Z68.41 Body mass index [BMI] 40.0-44.9, adult; I48.0 Paroxysmal atrial fibrillation; E66.01 Morbid (severe) obesity due to excess calories; I10 Essential (primary) hypertension; Z20.822 Contact with and (suspected) exposure to COVID-19; Z79.899 Other long term (current) drug therapy
CPT/HCPCS: 36415; 36600; 71046; 80048; 80053; 80061; 80162; 80307; 81001; 82570; 82805; 83036; 83605; 83735; 83880; 84132; 84300; 84443; 84484; 85025; 85379; 85610; 85730; 87040; 87804; 93005; 93306; 94640; 96361; 96365; G0378; J0696